=== PATIENT | female | born 1960 | race Caucasian/White ===

== ENCOUNTER 2017-08-24 06:55 | Emergency (ER) | payer OTHER ==
[~2017-08-24] VITALS: Ht 157.5 cm; Wt 72.6 kg
[~2017-08-24 06:55] MED LIST: AMLO5TAB PO; ASPI-1271 PO; CEL250 PO; CIPR500T4 PO; CLON0.1T42 PO; FAMO-90 PO; GEMF600T5 PO; GEMF600T6 PO; GLIP5TAB4 PO; K PH1TAB6 PO; LANTUS SUBQ; MULT1SGL58 PO; PRED10TA5 PO; PROG1 PO; SULF-59 PO; VALG450T PO; [UNRECOGNIZED DRUG - CODE]
[2017-08-24 06:57] VITALS: BP 152/90
[2017-08-24] MEDS ORDERED: ALBUTEROL SULFATE/IPRATROPIU 3 ML SOL IH ONE (07:25)
[2017-08-24] MEDS ORDERED: cefTRIAXone 1,000 MG in LIDOCAINE 1% ***ER ONLY *** 2.1 ML IM ONE (07:35)
--- NOTE | 2017-08-24 08:00 | NUR ---
57/F BIB SELF C/O cough, nasal congestion, wheezing since xmas joseph. LUNG SOUNDS MILD WHEEZING BILAT. WET COUGH NOTED. ER MD MADE AWARE. RT NOTIFIED.
--- NOTE | 2017-08-24 08:01 | NUR ---
RT AT BEDSIDE.
[2017-08-24] MEDS ORDERED: OSELTAMIVIR PHOSPHATE 75 MG CAP PO SCH (09:00)
--- NOTE | 2017-08-24 09:20 | NUR ---
PT STS FEELING BETTER. AWAITING DISCHARGE.
--- NOTE | 2017-08-24 09:46 | NUR ---
Patient discharged with v/s stable. Written and verbal after care instructions given and explained. Patient alert, oriented and verbalized understanding of instructions. Ambulatory with steady gait. All questions addressed prior to discharge. ID band removed. Patient advised to follow up with PMD. Rx of Z-PACK, MOTRIN, CODEINE PHOSPHATE/PROMETHAZINE HYDROCHLORIDE given. Patient educated on indication of medication including possible reaction and side effects. Opportunity to ask questions provided and answered.
[2017-08-24 09:51] VITALS: BP 148/86
== END 2017-08-24 09:46 | disposition home or self-care (01) ==
LOC: MED 06:55
DX: J40 Bronchitis, not specified as acute or chronic (principal); Z20.828 Contact with and (suspected) exposure to other viral communicable diseases; E11.9 Type 2 diabetes mellitus without complications; I10 Essential (primary) hypertension
CPT/HCPCS: 36415; 71046; 87804; 94640; 96372; 99285; J0696; J2001; J7620

== ENCOUNTER 2017-11-28 01:25 | Inpatient (IN) | payer OTHER ==
[~2017-11-28] VITALS: Ht 157.5 cm; Wt 72.1 kg
[2017-11-28 01:27] VITALS: BP 160/78
[2017-11-28] MEDS ORDERED: ATOR20TA PO (01:44)
[2017-11-28] MEDS ORDERED: PROG1 PO ×2 (01:44)
[2017-11-28] MEDS ORDERED: PRED20TA6 PO (01:44)
[2017-11-28] MEDS ORDERED: CEL250 PO (01:44)
[2017-11-28] MEDS ORDERED: INSU100S22 SUBQ (01:44)
[2017-11-28] MEDS ORDERED: NACL 0.9% 1,000 ML IV SCH (02:19)
[2017-11-28] MEDS ORDERED: MORPHINE SULFATE 4 MG/ML SYR IVP ONE (02:20)
[2017-11-28] MEDS ORDERED: ONDANSETRON 4 MG/2 ML VIAL IVP ONE (02:20)
[2017-11-28 02:38] LABS: APPEARANCE,URINE SL CLOUDY (CLEAR); BILIRUBIN,URINE NEGATIVE (NEGATIVE); BLOOD, URINE 2+ (NEGATIVE); COLOR,URINE YELLOW (YELLOW); LEUKOCYTE ESTERASE ,URINE TRACE (NEGATIVE); NITRITE, URINE NEGATIVE (NEGATIVE); PH,URINE 5.5 (5.0-9.0); UGLUCOSE NEGATIVE (NEGATIVE)
[2017-11-28 02:54] LABS: ALBUMIN 3.3 g/dL (3.4-5.0); ANION GAP 17.1 (8-16); CARBON DIOXIDE 23.7 mmol/L (21-32); CREATININE 1.6 mg/dL (0.6-1.3); POTASSIUM 3.8 mmol/L (3.5-5.1); TOTAL BILIRUBIN 0.6 mg/dL (0.0-1.0)
[2017-11-28 02:56] LABS: RBC,URINE 11-20 (MOD) /HPF (0-5)
[2017-11-28 03:17] LABS: HEMATOCRIT 37.6 % (36-48); MEAN CORPUSCULAR HEMOGLOBIN 29 pg (27-31); MEAN CORPUSCULAR HGB CONC 32 g/dL (33-37); MEAN CORPUSCULAR VOLUME 90.1 fL (80-94); PLATELET COUNT (AUTO) 180 K/uL (140-450); RED BLOOD CELL COUNT(AUTO) 4.18 MIL/uL (4.20-5.40); RED CELL DISTRIBUTION WIDTH 14.6 % (11.6-13.7); WHITE BLOOD COUNT (AUTO) 14.3 K/uL (4.8-10.8)
[2017-11-28 03:21] LABS: LYMPHOCYTES % (MANUAL) 3 % (20-46); MONOCYTES % (MANUAL) 5 % (5-12)
[2017-11-28] MEDS ORDERED: NACL 0.9% 1,000 ML IV ONE (03:55)
[2017-11-28] MEDS ORDERED: cefTRIAXone 1,000 MG VIAL ONE (04:00)
[2017-11-28 04:45] VITALS: BP 125/55
[2017-11-28] MEDS ORDERED: ONDANSETRON 4 MG/2 ML VIAL IVP PRN (07:35)
[2017-11-28] MEDS ORDERED: cloNIDine 0.1 MG TAB PO PRN (07:35)
[2017-11-28] MEDS ORDERED: MULTIVITAMIN 1 TAB PO SCH (09:21)
[2017-11-28] MEDS: POTASSIUM CHL 20 MEQ/ 1/2 NS 1,000 ML IV SCH ×2 (09:23→19:50)
[2017-11-28] MEDS: amLODIPine 5 MG TAB PO SCH (09:33)
[2017-11-28] MEDS: MULTIVITAMIN 1 TAB PO SCH (09:34)
[2017-11-28] MEDS: ECOTRIN 81 MG TABEC PO SCH (09:34)
[2017-11-28] MEDS: MYCOPHENOLATE 250 MG CAP PO SCH ×2 (09:34→20:32)
[2017-11-28] MEDS: predniSONE 20 MG TAB PO SCH (09:34)
[2017-11-28] MEDS: FAMOTIDINE 20 MG TAB PO SCH (09:34)
[2017-11-28] MEDS: TACROLIMUS 1 MG CAP PO SCH ×2 (09:37→20:46)
[2017-11-28 11:56] VITALS: BP 134/50
[2017-11-28] MEDS ORDERED: DEXTROSE 50% 50 ML SYR IVP PRN (13:15)
[2017-11-28] MEDS: BLOOD GLUCOSE MONITORING 1 DEV DEV FS SCH ×2 (16:30→20:41)
[2017-11-28] MEDS: INSULIN LISPRO SLIDING SCALE 100 UNITS/ML VIAL SUBQ PRN ×2 (17:52→20:44)
[2017-11-28 19:35] VITALS: BP 124/60
[2017-11-28] MEDS ORDERED: ATORVASTATIN 20 MG TAB PO SCH (21:00)
[2017-11-28] MEDS ORDERED: INSULIN LANTUS 100 UNITS/ML 10 ML VIAL SUBQ SCH (21:00)
[2017-11-29] VITALS: BP 123/57
[2017-11-29] MEDS: POTASSIUM CHL 20 MEQ/ 1/2 NS 1,000 ML IV SCH ×2 (00:31→06:41)
[2017-11-29] MEDS: BLOOD GLUCOSE MONITORING 1 DEV DEV FS SCH ×2 (06:10→12:11)
[2017-11-29] MEDS: INSULIN LISPRO SLIDING SCALE 100 UNITS/ML VIAL SUBQ PRN ×2 (06:11→12:09)
[2017-11-29 06:20] LABS: BASOPHILS % (AUTO) 0.3 % (0.0-2.0); EOSINOPHILS % (AUTO) 0.3 % (0.0-4.0); HEMOGLOBIN 10.7 g/dL (12.0-16.0); LYMPHOCYTES # (AUTO) 1.5 K/uL (2.5-16.5); LYMPHOCYTES % (AUTO) 19.3 % (20.5-51.1); MEAN CORPUSCULAR HEMOGLOBIN 29 pg (27-31); MEAN CORPUSCULAR HGB CONC 32 g/dL (33-37); MEAN CORPUSCULAR VOLUME 89.9 fL (80-94); MONOCYTES % (AUTO) 12.3 % (1.7-9.3); NEUTROPHILS # (AUTO) 5.3 K/uL (1.8-7.7); NEUTROPHILS % (AUTO) 67.8 % (42.2-75.2); PLATELET COUNT (AUTO) 180 K/uL (140-450); RED BLOOD CELL COUNT(AUTO) 3.67 MIL/uL (4.20-5.40); RED CELL DISTRIBUTION WIDTH 14.2 % (11.6-13.7); WHITE BLOOD COUNT (AUTO) 7.8 K/uL (4.8-10.8)
[2017-11-29 07:16] LABS: ALBUMIN 2.7 g/dL (3.4-5.0); ANION GAP 15.5 (8-16); CREATININE 1.2 mg/dL (0.6-1.3); POTASSIUM 4.5 mmol/L (3.5-5.1); TOTAL BILIRUBIN 0.2 mg/dL (0.0-1.0)
[2017-11-29 08:00] VITALS: BP 129/62
[2017-11-29] MEDS: MULTIVITAMIN 1 TAB PO SCH (09:15)
[2017-11-29] MEDS: TACROLIMUS 1 MG CAP PO SCH (09:15)
[2017-11-29] MEDS: amLODIPine 5 MG TAB PO SCH (09:15)
[2017-11-29] MEDS: predniSONE 20 MG TAB PO SCH (09:15)
[2017-11-29] MEDS: MYCOPHENOLATE 250 MG CAP PO SCH (09:16)
[2017-11-29] MEDS: FAMOTIDINE 20 MG TAB PO SCH (09:16)
[2017-11-29] MEDS: ECOTRIN 81 MG TABEC PO SCH (09:16)
== END 2017-11-29 15:20 | disposition home or self-care (01) | DRG 871 ==
LOC: MED 01:25 → MMU 04:20
PROVIDERS: ADMIT Family Medicine; ATTEND Family Medicine
DX: A41.9 Sepsis, unspecified organism (principal); N17.0 Acute kidney failure with tubular necrosis; E44.1 Mild protein-calorie malnutrition; Z94.0 Kidney transplant status; E11.9 Type 2 diabetes mellitus without complications; D64.9 Anemia, unspecified; N39.0 Urinary tract infection, site not specified; I10 Essential (primary) hypertension; E78.00 Pure hypercholesterolemia, unspecified; Z79.82 Long term (current) use of aspirin; Z79.899 Other long term (current) drug therapy; Z82.49 Family history of ischemic heart disease and other diseases of the circulatory system; Z83.3 Family history of diabetes mellitus; Z90.710 Acquired absence of both cervix and uterus; Z90.49 Acquired absence of other specified parts of digestive tract; Z68.29 Body mass index [BMI] 29.0-29.9, adult
CPT/HCPCS: 36415; 80053; 81001; 81025; 82948; 83605; 83690; 85025; 87040; 87081; 87086; 87186; 93976; 96361; 96375; 99285; J0696; J1815; J2270; J2405; J3480; J7030; J7060; J7507; J7512; J7517; Q0092

== ENCOUNTER 2018-06-15 07:51 | Inpatient (IN) | payer OTHER ==
[~2018-06-15] VITALS: Ht 157.5 cm; Wt 78.9 kg
[~2018-06-15 07:51] MED LIST changes: +ATOR20TA PO; -CIPR500T4 PO; -FAMO-90 PO; -GEMF600T5 PO; -GEMF600T6 PO; -GLIP5TAB4 PO; +INSU100S22 SUBQ; -K PH1TAB6 PO; -LANTUS SUBQ; -PRED10TA5 PO; +PRED20TA6 PO; -SULF-59 PO; -VALG450T PO; -[UNRECOGNIZED DRUG - CODE]
[2018-06-15 07:59] VITALS: BP 163/82
--- NOTE | 2018-06-15 08:07 | NUR ---
Patient ambulated to bed 8 after providing a urine specimen. RN evaluating patient at bedside.
--- NOTE | 2018-06-15 08:15 | NUR ---
PT PRESENTS TO ED WITH COMPLAINTS OF BACK PAIN, N/V, FEVER AND CHILLS. PT REPORTS HX KIDNEY TRANSPLANT. PATIENT STATES PAIN OF 8/10 AT THIS TIME; VSS; PATIENT POSITIONED FOR COMFORT; HOB ELEVATED; BEDRAILS UP X1; BED DOWN. ER MD MADE AWARE OF PT STATUS.
--- NOTE | 2018-06-15 08:17 | NUR ---
Dr. Arana evaluating patient at bedside.
[2018-06-15] MEDS ORDERED: ONDANSETRON 4 MG/2 ML VIAL IVP ONE (08:25)
[2018-06-15] MEDS: NACL 0.9% 1,000 ML IV SCH ×2 (08:46→13:59)
[2018-06-15 08:53] LABS: BASOPHILS # (AUTO) 0.1 K/uL (0.00-0.22); BASOPHILS % (AUTO) 0.4 % (0.0-2.0); HEMATOCRIT 38.8 % (36-48); HEMOGLOBIN 12.5 g/dL (12.0-16.0); LYMPHOCYTES # (AUTO) 0.8 K/uL (2.5-16.5); LYMPHOCYTES % (AUTO) 4.9 % (20.5-51.1); MEAN CORPUSCULAR HEMOGLOBIN 29 pg (27-31); MEAN CORPUSCULAR HGB CONC 32 g/dL (33-37); MEAN CORPUSCULAR VOLUME 89.4 fL (80-94); MONOCYTES # (AUTO) 1.7 K/uL (0.8-1.0); NEUTROPHILS # (AUTO) 14.3 K/uL (1.8-7.7); NEUTROPHILS % (AUTO) 84.7 % (42.2-75.2); PLATELET COUNT (AUTO) 229 K/uL (140-450); RED BLOOD CELL COUNT(AUTO) 4.34 MIL/uL (4.20-5.40); WHITE BLOOD COUNT (AUTO) 16.9 K/uL (4.8-10.8)
--- NOTE | 2018-06-15 09:00 | NUR ---
US tech at bedside for exam.
[2018-06-15 09:03] LABS: BILIRUBIN,URINE NEGATIVE (NEGATIVE); BLOOD, URINE TRACE (NEGATIVE); NITRITE, URINE NEGATIVE (NEGATIVE); UGLUCOSE NEGATIVE (NEGATIVE)
[2018-06-15 09:09] LABS: COLOR,URINE YELLOW (YELLOW)
[2018-06-15 09:10] LABS: RBC,URINE 0-5 (RARE) /HPF (0-5)
[2018-06-15 09:12] LABS: APPEARANCE,URINE SLIGHTLY HAZY (CLEAR); LEUKOCYTE ESTERASE ,URINE TRACE (NEGATIVE)
[2018-06-15 09:22] LABS: ANION GAP 15.8 (8-16); CARBON DIOXIDE 22.8 mmol/L (21-32); CREATININE 1.2 mg/dL (0.6-1.3); POTASSIUM 3.6 mmol/L (3.5-5.1)
[2018-06-15 09:28] LABS: ALBUMIN 3.7 g/dL (3.4-5.0); TOTAL BILIRUBIN 0.5 mg/dL (0.0-1.0)
--- NOTE | 2018-06-15 10:39 | NUR ---
pt back from ct.
[2018-06-15] MEDS ORDERED: cefTRIAXone 1,000 MG VIAL ONE (11:57)
[2018-06-15] MEDS ORDERED: ONDANSETRON 4 MG/2 ML VIAL IVP PRN (13:20)
[2018-06-15] MEDS ORDERED: cloNIDine 0.1 MG TAB PO PRN (13:20)
--- NOTE | 2018-06-15 14:30 | NUR ---
Patient will be admitted to care of dr. parmar. Admited to [facility]. Will go to room 106b. Belongings list completed. Report to ARIN HERNANDEZ.
[2018-06-15 14:45] VITALS: BP 130/64
--- NOTE | 2018-06-15 14:45 | NUR ---
PATIENT ADMITTED TO THE UNIT. PATIENT AWAKE, ALERT AND ORIENTED. NO S/S OF DISTRESS NOTED. PATIENT DENIES PAIN AT THIS TIME. NO ACTIVE VOMITING OR NAUSEA. BED LOWERED WITH CALL LIGHT WITHIN REACH. WILL CONTINUE TO MONITOR
[2018-06-15] MEDS ORDERED: DEXTROSE 50% 50 ML SYR IVP PRN (15:00)
[2018-06-15] MEDS: NACL 0.45% 1,000 ML IV SCH ×2 (15:05→23:53)
[2018-06-15] MEDS: BLOOD GLUCOSE MONITORING 1 DEV DEV FS SCH ×2 (16:25→20:40)
--- NOTE | 2018-06-15 16:45 | NUR ---
PATIENT ASLEEP IN BED. NO S/S OF DISTRESS NOTED
--- NOTE | 2018-06-15 19:21 | NUR ---
PATIENT REPORT GIVEN AT BEDSIDE. PATIENT ENDORSED IN STABLE CONDITION
--- NOTE | 2018-06-15 19:22 | NUR ---
RECEIVED BEDSIDE REPORT. PT A&O X4. IS ON RA. HAS IV R FA 20G INFUSING 1/2 NS AT 100ML/H. PT DENIES ANY PAIN. REVIEWED PLAN OF CARE WITH PT. SHE VERBALIZED UNDERSTANDING. ALL SAFETY MEASURES IN PLACE.
[2018-06-15] MEDS: TACROLIMUS 0.5 MG CAP PO SCH (20:32)
[2018-06-15] MEDS: MYCOPHENOLATE 250 MG CAP PO SCH (20:33)
--- NOTE | 2018-06-15 20:33 | NUR ---
DUE MEDICATIONS GIVEN PT TOLERATED WELL. NO DISTRESS NOTED. WILL CONTINUE TO MONITOR. CALL LIGHT WITHIN REACH.
[2018-06-15] MEDS: INSULIN LISPRO SLIDING SCALE 100 UNITS/ML VIAL SUBQ PRN (20:38)
[2018-06-15] MEDS ORDERED: ATORVASTATIN 20 MG TAB PO SCH (21:00)
[2018-06-15] MEDS ORDERED: INSULIN LANTUS 100 UNITS/ML 10 ML VIAL SUBQ SCH (21:00)
--- NOTE | 2018-06-15 23:16 | NUR ---
PAGED DR BRAGA REGARDING PTS TEMP OF 101.6. NO NEW ORDERS TO MONITOR. WILL CONTINUE TO MONITOR. Addendum: 06/16/18 at 0112 by Rola Escobar RN REMOVED PTS BLANKET AND WILL RECHECK.
--- NOTE | 2018-06-15 23:59 | NUR ---
PT IN STABLE CONDITION NO COMPLAINS OF PAIN OR CHILLS. CALL LIGHT WITHIN REACH. WILL CONTINUE TO MONITOR. SAFETY MEASURES IN PLACE.
[2018-06-16] VITALS: BP 150/66
--- NOTE | 2018-06-16 01:00 | NUR ---
RECHECKED PTS TEMPERATURE AND IS NOW 97.9. PT STABLE DENIES AND SOB,CHILLS, OR PAIN. WILL CONTINUE TO MONITOR. CALL LIGHT WITHIN REACH
--- NOTE | 2018-06-16 04:08 | NUR ---
PT SLEEPING. NO DISTRESS NOTED. SAFETY MEASURES IN PLACE. WILL CONTINUE TO MONITOR. CALL LIGHT WITHIN REACH.
[2018-06-16] MEDS: BLOOD GLUCOSE MONITORING 1 DEV DEV FS SCH ×3 (06:47→16:30)
[2018-06-16 06:59] LABS: BASOPHILS % (AUTO) 0.3 % (0.0-2.0); EOSINOPHILS % (AUTO) 0.3 % (0.0-4.0); HEMATOCRIT 34.8 % (36-48); HEMOGLOBIN 11.4 g/dL (12.0-16.0); LYMPHOCYTES # (AUTO) 1.4 K/uL (2.5-16.5); LYMPHOCYTES % (AUTO) 10.6 % (20.5-51.1); MEAN CORPUSCULAR HEMOGLOBIN 29 pg (27-31); MEAN CORPUSCULAR HGB CONC 33 g/dL (33-37); MEAN CORPUSCULAR VOLUME 89.5 fL (80-94); MONOCYTES # (AUTO) 1.6 K/uL (0.8-1.0); MONOCYTES % (AUTO) 12.3 % (1.7-9.3); NEUTROPHILS # (AUTO) 9.8 K/uL (1.8-7.7); NEUTROPHILS % (AUTO) 76.5 % (42.2-75.2); PLATELET COUNT (AUTO) 202 K/uL (140-450); RED BLOOD CELL COUNT(AUTO) 3.89 MIL/uL (4.20-5.40); RED CELL DISTRIBUTION WIDTH 14.1 % (11.6-13.7); WHITE BLOOD COUNT (AUTO) 12.8 K/uL (4.8-10.8)
[2018-06-16 07:18] LABS: MAGNESIUM 1.1 mg/dL (1.8-2.4); PHOSPHORUS 2.4 mg/dL (2.5-4.9)
--- NOTE | 2018-06-16 07:23 | NUR ---
ENDORSED PT TO DAY SHIFT. PT IN STABLE CONDITION
--- NOTE | 2018-06-16 07:35 | NUR ---
RECEIVED PATIENT FROM PM SHIFT BY BEDSIDE. PATIENT IS IN STABLE CONDITION WITH NO APPARENT DISTRESS. PATIENT IS AOX4, ON ROOM AIR. PATIENT DID NOT STATE ANY PAIN, VOMITING, OR NAUSEA AT THE TIME OF ASSESSMENT. VITAL SIGNS ARE ALL WITHIN THE NORMAL LIMITS.
[2018-06-16 07:43] LABS: ANION GAP 15.4 (8-16); CARBON DIOXIDE 21.2 mmol/L (21-32); CREATININE 1.1 mg/dL (0.6-1.3); POTASSIUM 3.6 mmol/L (3.5-5.1)
[2018-06-16 08:00] VITALS: BP 141/61
[2018-06-16] MEDS ORDERED: amLODIPine 5 MG TAB PO SCH (09:00)
[2018-06-16] MEDS ORDERED: MULTIVITAMIN 1 TAB PO SCH (09:00)
[2018-06-16] MEDS ORDERED: ECOTRIN 81 MG TABEC PO SCH (09:00)
[2018-06-16] MEDS ORDERED: predniSONE 5 MG TAB PO SCH (09:00)
[2018-06-16] MEDS: TACROLIMUS 0.5 MG CAP PO SCH (09:22)
[2018-06-16] MEDS: MYCOPHENOLATE 250 MG CAP PO SCH (09:23)
[2018-06-16] MEDS: NACL 0.45% 1,000 ML IV SCH (09:45)
--- NOTE | 2018-06-16 10:30 | NUR ---
PATIENT IS WATCHING TV AND DOES NOT SEEM TO BE IN ANY PAIN OR DISTRESS. SAFETY MEASURES IN PLACE. CALL LIGHT WITHIN REACH.
--- NOTE | 2018-06-16 11:30 | NUR ---
PATIENT IN BED, WATCHING TELEVISION. NO S/S OF DISTRESS. PATIENT DENIES ANY DISCOMFORT
[2018-06-16] MEDS: INSULIN LISPRO SLIDING SCALE 100 UNITS/ML VIAL SUBQ PRN (12:18)
[2018-06-16] MEDS ORDERED: MAG SULF 2000 MG/WATER PREMIX 50 ML IV ONE (13:25)
[2018-06-16] MEDS: MAGNESIUM SULFATE 1GM in DEXTROSE 5% 100 ML PREMIX IV SCH ×2 (14:13→15:42)
--- NOTE | 2018-06-16 15:12 | NUR ---
SPOKE WITH DR TUCKER ON THE PHONE. PER DR TUCKER, PATIENT IS CLEARED FOR DISCHARGE FROM HIS STAND POINT. NOTIFIED DR BRAGA. PER DR BRAGA PATIENT CAN BE DISCHARGED TO HOME AND PRESCRIPTIONS WILL BE SENT TO PATIENT'S PREFERRED PHARMACY
[2018-06-16 15:47] VITALS: BP 140/64
[2018-06-16] MEDS ORDERED: PNEUMOCOCCAL VACCINE 23 MCG/0.5 ML VIAL IMVAC SCH (16:40)
--- NOTE | 2018-06-16 17:30 | NUR ---
PATIENT DISCHARGED TO HOME. DISCHARGE INSTRUCTIONS AND DISCHARGE PRESCRIPTIONS GIVEN. PATIENT VERBALIZED UNDERSTANDING. IV LINE DISCONTINUED. TELE MONITOR TAKEN OFF. PATIENT LEFT WITH ALL HER BELONGINGS AND DISCHARGE PAPERS. PATIENT LEFT IN STABLE CONDITION
[2018-06-18 16:08] LABS: TACROLIMUS 7.8 ng/mL (2.0-20.0)
== END 2018-06-16 17:30 | disposition home or self-care (01) | DRG 871 ==
LOC: MED 07:51 → MTU 14:24 → OBSVTOIN 06-16 07:44
PROVIDERS: ADMIT Family Medicine; ATTEND Family Medicine
PROC: 3E0234Z Introduction of Serum, Toxoid and Vaccine into Muscle, Percutaneous Approach (ICD-10-PCS; principal; 2018-06-16)
DX: A41.9 Sepsis, unspecified organism (principal); N18.6 End stage renal disease; N12 Tubulo-interstitial nephritis, not specified as acute or chronic; I12.0 Hypertensive chronic kidney disease with stage 5 chronic kidney disease or end stage renal disease; N17.9 Acute kidney failure, unspecified; Z94.0 Kidney transplant status; E78.5 Hyperlipidemia, unspecified; Z79.4 Long term (current) use of insulin; Z82.49 Family history of ischemic heart disease and other diseases of the circulatory system; Z83.3 Family history of diabetes mellitus; Z90.49 Acquired absence of other specified parts of digestive tract; Z90.710 Acquired absence of both cervix and uterus; E11.22 Type 2 diabetes mellitus with diabetic chronic kidney disease; Z23 Encounter for immunization
CPT/HCPCS: 96361; 96374; 99285; G0378; 36415; 71045; 76770; 80048; 80053; 81001; 82948; 83690; 83735; 84100; 85025; 87040; 87081; 87086; 87186; 90732; 93976; J0696; J1815; J2405; J7060; J7507; J7512; J7517; Q0092

== ENCOUNTER 2019-06-20 08:11 | Inpatient (IN) | payer OTHER, BC ==
[~2019-06-20] VITALS: Ht 157.5 cm; Wt 83.5 kg
[2019-06-20 08:21] VITALS: BP 140/71
--- NOTE | 2019-06-20 08:28 | NUR ---
Patient ambulated to bed 8.
--- NOTE | 2019-06-20 08:31 | NUR ---
ACCU CHECK 163
--- NOTE | 2019-06-20 08:31 | NUR ---
PT UNABLE TO GIVE URINE AT THIS TIME
[2019-06-20] MEDS ORDERED: NACL 0.9% 1,000 ML IV ONE (08:40)
[2019-06-20] MEDS ORDERED: ONDANSETRON 4 MG/2 ML VIAL IVP ONE (08:40)
--- NOTE | 2019-06-20 08:49 | NUR ---
PT BIB SON C/O VOMITING X 1 DAY. PT ALSO COMPLAINS OF LOOSE, WATERY, FOUL-SMELLING DIARRHEA QHOUR SINCE THIS AM. +NAUSEA +BACK PAIN -FEVER -URINARY SYMPTOMS ER MD TO SEE PT
[2019-06-20 09:24] LABS: BASOPHILS % (AUTO) 0.2 % (0.0-2.0); EOSINOPHILS # (AUTO) 0.2 K/uL (0-0.4); EOSINOPHILS % (AUTO) 1.1 % (0.0-4.0); HEMATOCRIT 41.8 % (36-48); HEMOGLOBIN 13.6 g/dL (12.0-16.0); LYMPHOCYTES # (AUTO) 0.4 K/uL (2.5-16.5); LYMPHOCYTES % (AUTO) 3.1 % (20.5-51.1); MEAN CORPUSCULAR HEMOGLOBIN 30 pg (27-31); MEAN CORPUSCULAR HGB CONC 33 g/dL (33-37); MEAN CORPUSCULAR VOLUME 92.2 fL (80-94); MONOCYTES # (AUTO) 0.8 K/uL (0.8-1.0); MONOCYTES % (AUTO) 5.5 % (1.7-9.3); NEUTROPHILS # (AUTO) 12.5 K/uL (1.8-7.7); NEUTROPHILS % (AUTO) 90.1 % (42.2-75.2); PLATELET COUNT (AUTO) 237 K/uL (140-450); RED BLOOD CELL COUNT(AUTO) 4.53 MIL/uL (4.20-5.40); RED CELL DISTRIBUTION WIDTH 14.6 % (11.6-13.7); WHITE BLOOD COUNT (AUTO) 13.9 K/uL (4.8-10.8)
[2019-06-20 09:35] LABS: ANION GAP 17.1 (8-16); CARBON DIOXIDE 23.4 mmol/L (21-32)
[2019-06-20 09:40] LABS: POTASSIUM 4.5 mmol/L (3.5-5.1)
[2019-06-20 09:41] LABS: ALBUMIN 3.9 g/dL (3.4-5.0); TOTAL BILIRUBIN 0.8 mg/dL (0.0-1.0)
[2019-06-20 09:45] LABS: APPEARANCE,URINE CLEAR (CLEAR); BILIRUBIN,URINE NEGATIVE (NEGATIVE); BLOOD, URINE NEGATIVE (NEGATIVE); COLOR,URINE YELLOW (YELLOW); LEUKOCYTE ESTERASE ,URINE 1+ (NEGATIVE); NITRITE, URINE NEGATIVE (NEGATIVE); UGLUCOSE NEGATIVE (NEGATIVE)
[2019-06-20 10:01] LABS: RBC,URINE 0-5 /HPF (0-5)
[2019-06-20] MEDS ORDERED: ASPIRIN 81 MG TAB.CHEW PO ONE (10:10)
[2019-06-20] MEDS ORDERED: METO25TA14 PO (10:19)
[2019-06-20] MEDS ORDERED: cefTRIAXone 1,000 MG VIAL ONE (10:20)
[2019-06-20] MEDS ORDERED: HYDROcodone/APAP 5/325 MG 1 TAB TAB PO PRN (10:45)
[2019-06-20] MEDS ORDERED: ONDANSETRON 4 MG/2 ML VIAL IM/IVP PRN (10:45)
[2019-06-20] MEDS ORDERED: ACETAMINOPHEN 325 MG TAB PO PRN (10:45)
[2019-06-20] MEDS ORDERED: DOCUSATE SODIUM 100 MG GELCAP PO PRN (10:45)
[2019-06-20] MEDS ORDERED: cloNIDine 0.1 MG TAB PO PRN (10:45)
[2019-06-20] MEDS ORDERED: MORPHINE SULFATE 2 MG/ML SYR IVP PRN (10:45)
[2019-06-20] MEDS ORDERED: DEXTROSE 50% 50 ML SYR IVP PRN (11:00)
[2019-06-20 11:27] LABS: PROTHROMBIN TIME 9.6 secs (10.8-13.4)
--- NOTE | 2019-06-20 11:34 | NUR ---
Patient will be admitted to care of DR BRAGA. Admited to ICU. Will go to BED 3. Belongings list completed. Report to KISHOR.
[2019-06-20 11:36] LABS: MAGNESIUM 1.3 mg/dL (1.8-2.4); PHOSPHORUS 2.3 mg/dL (2.5-4.9); THYROID STIMULATING HORMONE 2.13 uIU/mL (0.34-3.74)
[2019-06-20] MEDS: NACL 0.9% 1,000 ML IV SCH (11:40)
--- NOTE | 2019-06-20 11:40 | NUR ---
PT TRANSFERRED TO ICU FROM ER, REPORT RECEIVED AT BEDSIDE FROM ARIN TEE. PT IS TELEMETRY STATUS. AAOX4, ABLE TO FOLLOW COMMANDS AND MAKE NEEDS KNOWN. AFEBRILE. C/O MILD BACK PAIN. DOES NOT NEED PAIN MEDICATION PER PT. NORMAL SINUS RHYTHM ON MONITOR. S1 S2 HEARD. PT IS ON ROOM AIR. NO SOB NOTED. BREATHING EVEN AND UNLABORED. BP 127/57, HR 87, 22 24, SPO2 96%. BLOOD SUGAR 145. LUNGS SOUND CLEAR BILATERALLY. ABDOMEN SOFT, NONTENDER AND NONDISTENDED. BOWEL SOUNDS PRESENT X 4 QUADRANTS. PERIPHERAL IV G22 TO RIGHT FOREARM PATENT AND INTACT WITH GOOD BLOOD RETURN. IVF NORMAL SALINE RUNNING AT 100 ML/HR. PT IS CONTINENT B&B, NO BLADDER DISTENTION NOTED. SKIN IS INTACT, DRY AND WARM TO TOUCH. PULSES PALPABLE TO ALL EXTREMITIES. CAP REFILL <2SEC. OLD HD SHUNT NOTED TO LEFT UPPER ARM. NO EDEMA NOTED. HOB 30 DEGREES, BED IN LOWEST POSITION LOCKED, CALL LIGHT WITHIN REACH. SAFETY PRECAUTIONS IN PLACE. NO SIGNS OF DISTRESS NOTED. WILL CONTINUE OT MONITOR. Addendum: 06/20/19 at 1346 by Estefany Elizabeth RN S/P KIDNEY TRANSPLANT IN 2014
[2019-06-20] MEDS: BLOOD GLUCOSE MONITORING 1 DEV DEV FS SCH ×3 (11:53→21:29)
[2019-06-20 12:00] VITALS: BP 127/57
[2019-06-20] MEDS ORDERED: MAGNESIUM OXIDE 400 MG TAB PO SCH (12:15)
[2019-06-20] MEDS ORDERED: SODIUM PHOS / POTASSIUM PHOS 1 PKT PDR PO SCH (12:30)
--- NOTE | 2019-06-20 13:05 | NUR ---
PT SEEN AND EXAMINED BY DR. BRAGA. NO NEW ORDER RECEIVED AT THIS TIME.
[2019-06-20] MEDS ORDERED: PANTOPRAZOLE 40 MG INJ VIAL IVP SCH (13:11)
--- NOTE | 2019-06-20 14:05 | NUR ---
PT DENIES SCDS AT THIS TIME. EDUCATED PT THE PURPOSE AND BENEFITS OF SEQUENTIAL DEVICES. PT VERBALIZED UNDERSTANDING. PT ABLE TO MOVE ALL EXTREMITIES, ABLE TO AMBULATE AND USES BEDSIDE COMMODE.
--- NOTE | 2019-06-20 15:00 | NUR ---
PT DENIES NAUSEA AND PAIN AT THIS TIME. VSS. NO S/SX OF DISTRESS NOTED. SAFETY PRECAUTIONS IN PLACE. WILL CONTINUE TO MONITOR.
--- NOTE | 2019-06-20 15:36 | NUR ---
PT USED BEDSIDE COMMODE, VOIDED 300 ML YELLOW URINE W/ SMALL AMOUNT OF SEDIMENTS. ASSISTED PT BACK TO BED. NO SOB OR DISTRESS AT THIS TIME. VSS. SAFETY PRECAUTIONS IN PLACE.
[2019-06-20 16:00] VITALS: BP 126/67
[2019-06-20] MEDS ORDERED: INSULIN LISPRO 100 UNITS/ML VIAL SUBQ SCH (16:30)
--- NOTE | 2019-06-20 16:35 | NUR ---
PT'S BLOOD SUGAR 170. 14 UNITS OF HUMALOG SCHEDULED AND PT ALSO HAS SLIDING SCALE. CALLED DR. AMADOR AND VERIFIED ORDER. PER DR. AMADOR, ONLY GIVE HUMALOG SLIDING SCALE AT THIS TIME. WILL CARRY OUT.
[2019-06-20] MEDS: INSULIN LISPRO SLIDING SCALE 100 UNITS/ML VIAL SUBQ PRN ×2 (16:49→21:42)
--- NOTE | 2019-06-20 17:50 | NUR ---
DINNER PROVIDED. PT SITTING UP AND HAVING DINNER INDEPENDENTLY. NO S/SX OF DISTRESS NOTED. VSS. SAFETY PRECAUTIONS IN PLACE.
--- NOTE | 2019-06-20 18:40 | NUR ---
PT TRANSFERRED TO TELEMETRY ROOM 106B. REPORT GIVEN TO ARIN SIDDIQUI AT BEDSIDE. NO S/SX OF DISTRESS NOTED AT THIS TIME.
--- NOTE | 2019-06-20 19:25 | NUR ---
RECEIVED BEDSIDE REPORT FROM CHEN HINKLE DAYSHIFT NURSE AT BEDSIDE FOR CONTINUITY OF CARE, PT IN STABLE CONDITION.
--- NOTE | 2019-06-20 19:29 | NUR ---
Shift report given to shift engineer nurse. Pt is in stable condition.
[2019-06-20 20:00] VITALS: BP 129/57
--- NOTE | 2019-06-20 20:00 | NUR ---
PT IN LOW BED WITH SIDE RAILS UP X2 AND CALL SHERWOOD IN REACH. PT HAS 22G ON RIGHT F/A INTACT AND RUNNING N/S AT 60MLS/HR. V/S FOLLOWS T 97.9 P 74 R 18 B/P 129/57 02 93% ON ROOM AIR. ALL REQUESTED NEEDS ATTENDED AND CALL SHERWOOD IN REACH.
[2019-06-20] MEDS ORDERED: INSULIN LANTUS 100 UNITS/ML 10 ML VIAL SUBQ SCH (21:00)
[2019-06-20] MEDS ORDERED: MYCOPHENOLATE 250 MG CAP PO SCH (21:00)
[2019-06-20] MEDS ORDERED: TACROLIMUS 0.5 MG CAP PO SCH ×2 (21:00)
--- NOTE | 2019-06-20 21:00 | NUR ---
PT SITTING UP IN BED, DR. BRODY STAGE DRIVER AT BEDSIDE CONSULTING PT. EDUCATION REGARDING MEDICATIONS PROVIDED TO PT AND PT VERBALIZED UNDERSTANDING. PT ALSO GIVEN DUE MEDS OF CELLCEPT, LIPITOR, LOPRESSOR, PROGRAF AA WELL LANTUS SQ INJECTION FOR DM2. FINGERSTICK IS 183, PT ALSO GIVEN 2 UNITS OF HUMALOG COVERAGE SQ. PT C/O MODERATE PAIN IN BACK, GIVEN 1 TAB NORCO 5/325 PO/PRN WILL MONITOR FOR PAIN RELIEF. ALL REQUESTED NEEDS ATTENDED AND CALL SHERWOOD IN REACH. Addendum: 06/20/19 at 2257 by Tasia Cortez RN PT GIVEN NORCO TAB AT 2150 NOT 2100.
[2019-06-20] MEDS: MYCOPHENOLATE 250 MG CAP PO SCH (21:31)
[2019-06-20] MEDS: ATORVASTATIN 20 MG TAB PO SCH (21:32)
[2019-06-20] MEDS: TACROLIMUS 0.5 MG CAP PO SCH (21:33)
[2019-06-20] MEDS: METOPROLOL 25 MG TAB PO SCH (21:33)
[2019-06-20] MEDS: INSULIN LANTUS 100 UNITS/ML 10 ML VIAL SUBQ SCH (21:40)
[2019-06-21] VITALS: BP 127/62
--- NOTE | 2019-06-21 01:00 | NUR ---
PT IN BED RESTING WITH EYES CLOSED, PT STATED POSITIVE EFFECT OF PAIN MEDICATION. V/S FOLLOWS T 98.5 P 70 R 18 B/P 127/62 02 94% ON ROOM AIR. PT GIVEN PRINT OUT OF ORDERED HUMALOG S/S [id number] FOR REFERENCE FOR HER PRIMARY CARE WHEN SHE HAS FOLLOW UP APPOINTMENT. TEACHING DONE AT BEDSIDE REGARDING DM2. N/S CONTINUES TO RUN AT 60MLS/HR. IV SITE INTACT AND ASYMPTOMATIC. BED LOW MINE DEPUTY RAILS UP AND CALL SHERWOOD IN REACH.
--- NOTE | 2019-06-21 02:00 | NUR ---
PT RESTING IN BED NO S/S OF PAIN OR DISTRESS NOTED, N/S BAG COMPLETED AND NEW BAG HUNG AND IS RUNNING ORDERED AT 60MLS/HR. IV SITE INTACT, BED IS LOW AND SIDE RAILS UP, CALL SHERWOOD IN REACH.
[2019-06-21] MEDS: NACL 0.9% 1,000 ML IV SCH (03:00)
[2019-06-21 04:00] VITALS: BP 135/65
--- NOTE | 2019-06-21 04:00 | NUR ---
PT IN BED NO C/O VOICED NS RUNNING AT 60MLS/HR. PT DENIES PAIN. SHE IS ABLE TO AMBULATE UNASSISTED TO TOILET AND BACK. V/S FOLLOWS T 97.0 P 68 R 18 B/P 135/65 02 95% ON ROOM AIR. BED LOW AND CALL SHERWOOD IN REACH.
[2019-06-21] MEDS: INSULIN LISPRO SLIDING SCALE 100 UNITS/ML VIAL SUBQ PRN ×4 (06:49→20:44)
[2019-06-21] MEDS: BLOOD GLUCOSE MONITORING 1 DEV DEV FS SCH ×4 (06:56→21:00)
--- NOTE | 2019-06-21 06:57 | NUR ---
PT FINGERSTICK IS 152,PT GIVEN 2 UNITS OF HUMALOG COVERAGE NO S/S OF PAIN OR DISTRESS NOTED CALL SHERWOOD IN REACH.
[2019-06-21 07:13] LABS: ANION GAP 13.9 (8-16); CARBON DIOXIDE 23.8 mmol/L (21-32); POTASSIUM 3.7 mmol/L (3.5-5.1)
[2019-06-21 07:16] LABS: CHOL/HDL RATIO 2.7 (1-4.5)
--- NOTE | 2019-06-21 07:28 | NUR ---
REPORT RECEIVED FROM PROFESSOR OF PUBLIC ADMINISTRATION NURSE, PT SLEEPING QUIETLY IN NO ACUTE DISTRESS, RESP EVEN UNLABORED, SKIN WARM DRY COLOR WNL, AROUSES EASILY, DENIES PAIN OR DISCOMFORT, IVF INFUSING WELL, SITE WNL, POC REVIEWED, ALL SAFETY MEASURES IN PLACE, NO IMMEDIATE NEEDS AT THIS TIME, WILL CONTINUE TO MONITOR.
[2019-06-21 07:29] LABS: MAGNESIUM 1.3 mg/dL (1.8-2.4); PHOSPHORUS 2.3 mg/dL (2.5-4.9)
[2019-06-21 07:45] LABS: BASOPHILS % (AUTO) 0.3 % (0.0-2.0); EOSINOPHILS # (AUTO) 0.1 K/uL (0-0.4); EOSINOPHILS % (AUTO) 1.3 % (0.0-4.0); HEMATOCRIT 34.2 % (36-48); HEMOGLOBIN 11.1 g/dL (12.0-16.0); LYMPHOCYTES # (AUTO) 1.3 K/uL (2.5-16.5); LYMPHOCYTES % (AUTO) 19.2 % (20.5-51.1); MEAN CORPUSCULAR HEMOGLOBIN 30 pg (27-31); MEAN CORPUSCULAR HGB CONC 32 g/dL (33-37); MEAN CORPUSCULAR VOLUME 92.2 fL (80-94); MONOCYTES # (AUTO) 0.6 K/uL (0.8-1.0); MONOCYTES % (AUTO) 9.6 % (1.7-9.3); NEUTROPHILS # (AUTO) 4.7 K/uL (1.8-7.7); NEUTROPHILS % (AUTO) 69.6 % (42.2-75.2); PLATELET COUNT (AUTO) 210 K/uL (140-450); RED BLOOD CELL COUNT(AUTO) 3.71 MIL/uL (4.20-5.40); RED CELL DISTRIBUTION WIDTH 14.2 % (11.6-13.7); WHITE BLOOD COUNT (AUTO) 6.7 K/uL (4.8-10.8)
[2019-06-21 08:00] VITALS: BP 115/57
[2019-06-21] MEDS ORDERED: METOPROLOL 25 MG TAB PO SCH (09:00)
[2019-06-21] MEDS ORDERED: amLODIPine 5 MG TAB PO SCH (09:00)
[2019-06-21] MEDS ORDERED: TACROLIMUS 0.5 MG CAP PO SCH (09:00)
[2019-06-21] MEDS: METOPROLOL 25 MG TAB PO SCH ×2 (09:00→20:41)
[2019-06-21] MEDS: amLODIPine 5 MG TAB PO SCH ×2 (09:00→12:25)
[2019-06-21] MEDS ORDERED: SODIUM PHOSPHATE 15 MMOLE in NACL 0.9% 250 ML IV SCH (09:00)
[2019-06-21] MEDS ORDERED: predniSONE 20 MG TAB PO SCH (09:00)
[2019-06-21] MEDS ORDERED: MAG SULF 2000 MG/WATER PREMIX 50 ML IV SCH (09:00)
[2019-06-21] MEDS: predniSONE 5 MG TAB PO SCH (09:15)
[2019-06-21] MEDS: ASPIRIN 81 MG TAB.CHEW PO SCH (09:16)
[2019-06-21] MEDS: PANTOPRAZOLE 40 MG INJ VIAL IVP SCH (09:16)
[2019-06-21] MEDS: MULTIVITAMIN/MINERALS 1 TAB PO SCH (09:17)
[2019-06-21] MEDS: LACTOBACILLUS RHAMNOSUS GG 1 EACH CAP PO SCH (09:17)
--- NOTE | 2019-06-21 09:20 | NUR ---
PT SITTING UP AT SIDE OF BED, JUST FINISHED BREAKFAST, AM MEDS GIVEN, ADIEL WELL, ROCEPHINE GIVEN PER ORDER, IV SITE WNL, DENIES PAIN OR DISCOMFORT, CALL LIGHT WITHIN REACH, WILL CONTINUE TO MONITOR.
[2019-06-21] MEDS: TACROLIMUS 0.5 MG CAP PO SCH ×2 (09:28→20:40)
[2019-06-21] MEDS: MYCOPHENOLATE 250 MG CAP PO SCH ×2 (09:28→20:41)
[2019-06-21 12:00] VITALS: BP 158/87
--- NOTE | 2019-06-21 12:29 | NUR ---
2UNITS INSULIN GIVEN FOR BS 177.
--- NOTE | 2019-06-21 15:07 | NUR ---
PT SITTING UP IN BED IN NO ACUTE DISTRESS, APPEARS COMFORTABLE, DENIES ANY IMMEDIATE NEEDS.
[2019-06-21 16:00] VITALS: BP 120/56
--- NOTE | 2019-06-21 17:53 | NUR ---
2 UNITS FOR BS 170.
--- NOTE | 2019-06-21 19:20 | NUR ---
PERSONAL WYATT CHAPARRO OUTSIDE AT THIS TIME. Addendum: 06/21/19 at 1999 by Delmy Malhotra RN PLEASE DISREGARD ABOVE NOTE, WRONG PT
--- NOTE | 2019-06-21 19:20 | NUR ---
REPORT GIVEN TO ADULT PROBATION OFFICER NURSE, PT IN STABLE CONDITION.
--- NOTE | 2019-06-21 19:21 | NUR ---
RECEIVED BEDSIDE REPORT FROM DAY SHIFT NURSE. PT EATING AT THIS TIME. DENIES PAIN OR SOB. ON ROOM AIR. SKIN INTACT. IV TO RIGHT FA #22G, DRESSING CLEAN, DRY AND INTACT. DISCUSSED PLAN OF CARE, PT VERBALIZED UNDERSTANDING. CALL LIGHT WITHIN REACH.
[2019-06-21 20:00] VITALS: BP 131/68
[2019-06-21] MEDS: ATORVASTATIN 20 MG TAB PO SCH (20:40)
[2019-06-21] MEDS: INSULIN LANTUS 100 UNITS/ML 10 ML VIAL SUBQ SCH (20:44)
--- NOTE | 2019-06-21 21:18 | NUR ---
PT HAD BMX1, FORMED. SENT STOOL TO LAB. PER DR. NAVA OK TO CANCEL ORDER FOR C.DIFF AND LEUKOCYTES STOOL.
[2019-06-22] VITALS: BP 129/66
--- NOTE | 2019-06-22 00:05 | NUR ---
PT SITTING ON HER BED, WATCHING TV. DENIES PAIN OR SOB. V/S TAKEN, WNL. ALL NEEDS ATTENDED AT THIS TIME. CALL LIGHT WITHIN REACH.
--- NOTE | 2019-06-22 02:35 | NUR ---
PT SLEEPING BUT EASILY AROUSABLE. RESP EVEN AND UNLABORED. CALL LIGHT WITHIN REACH.
[2019-06-22 04:00] VITALS: BP 119/53
--- NOTE | 2019-06-22 04:45 | NUR ---
PT SLEEPING. NO S/S OF RESP DISTRESS OR PAIN. CALL LIGHT WITHIN REACH.
--- NOTE | 2019-06-22 06:20 | NUR ---
BLOOD SUGAR 124. NO INSULIN COVERAGE. PT RESTING IN BED, DENIES PAIN OR SOB.
[2019-06-22] MEDS: BLOOD GLUCOSE MONITORING 1 DEV DEV FS SCH ×2 (06:22→11:30)
[2019-06-22 06:47] LABS: ANION GAP 14.2 (8-16); CARBON DIOXIDE 24.5 mmol/L (21-32); CREATININE 0.8 mg/dL (0.6-1.3); POTASSIUM 3.7 mmol/L (3.5-5.1)
[2019-06-22 06:57] LABS: MAGNESIUM 1.5 mg/dL (1.8-2.4); PHOSPHORUS 2.3 mg/dL (2.5-4.9)
--- NOTE | 2019-06-22 07:12 | NUR ---
ENDORSED PT TO DAY SHIFT NURSE. PT IN STABLE CONDITION.
[2019-06-22 07:18] LABS: BASOPHILS % (AUTO) 0.2 % (0.0-2.0); EOSINOPHILS # (AUTO) 0.1 K/uL (0-0.4); EOSINOPHILS % (AUTO) 1.5 % (0.0-4.0); HEMATOCRIT 33.3 % (36-48); HEMOGLOBIN 10.9 g/dL (12.0-16.0); LYMPHOCYTES # (AUTO) 1.7 K/uL (2.5-16.5); LYMPHOCYTES % (AUTO) 26.1 % (20.5-51.1); MEAN CORPUSCULAR HEMOGLOBIN 30 pg (27-31); MEAN CORPUSCULAR HGB CONC 33 g/dL (33-37); MEAN CORPUSCULAR VOLUME 91.1 fL (80-94); MONOCYTES # (AUTO) 0.6 K/uL (0.8-1.0); MONOCYTES % (AUTO) 9.9 % (1.7-9.3); NEUTROPHILS # (AUTO) 4.1 K/uL (1.8-7.7); NEUTROPHILS % (AUTO) 62.3 % (42.2-75.2); PLATELET COUNT (AUTO) 210 K/uL (140-450); RED BLOOD CELL COUNT(AUTO) 3.66 MIL/uL (4.20-5.40); WHITE BLOOD COUNT (AUTO) 6.6 K/uL (4.8-10.8)
--- NOTE | 2019-06-22 07:25 | NUR ---
REPORT RECEIVED FROM EXCAVATING CONTRACTOR NURSE, PT SLEEPING, AROUSES EASILY, RESP EVEN UNLABORED, SKIN WARM DRY COLOR WNL, DENIES ANY PAIN OR DISCOMFORT, POC REVIEWED, ALL SAFETY MEASURES IN PLACE, CALL SHERWOOD WITHIN REACH, NO IMMEDIATE NEEDS AT THIS TIME, WILL CONTINUE TO MONITOR.
[2019-06-22 08:14] VITALS: BP 122/58
--- NOTE | 2019-06-22 08:39 | NUR ---
PATIENT HAS BEEN SCREENED AND CATEGORIZED MODERATE NUTRITION RISK. PATIENT WILL BE SEEN WITHIN 3-5 DAYS OF ADMISSION. 06/24/[address]
[2019-06-22] MEDS ORDERED: MAG SULF 2000 MG/WATER PREMIX 50 ML IV SCH (09:00)
[2019-06-22] MEDS: METOPROLOL 25 MG TAB PO SCH (09:00)
[2019-06-22] MEDS ORDERED: POTASSIUM PHOSPHATE 15 MM in NACL 0.9% 250 ML IV SCH (10:00)
[2019-06-22] MEDS: LACTOBACILLUS RHAMNOSUS GG 1 EACH CAP PO SCH (10:14)
[2019-06-22] MEDS: ASPIRIN 81 MG TAB.CHEW PO SCH (10:15)
[2019-06-22] MEDS: MULTIVITAMIN/MINERALS 1 TAB PO SCH (10:18)
[2019-06-22] MEDS: MYCOPHENOLATE 250 MG CAP PO SCH (10:19)
[2019-06-22] MEDS: TACROLIMUS 0.5 MG CAP PO SCH (10:20)
[2019-06-22] MEDS: PANTOPRAZOLE 40 MG INJ VIAL IVP SCH (10:21)
[2019-06-22] MEDS: amLODIPine 5 MG TAB PO SCH (10:27)
--- NOTE | 2019-06-22 10:30 | NUR ---
DR BRAGA AT BEDSIDE,
[2019-06-22] MEDS: predniSONE 5 MG TAB PO SCH (10:34)
--- NOTE | 2019-06-22 11:00 | NUR ---
DISCHARGE ORDER RECEIVED, AWAITING MAGNESIUM INFUSION TO COMPLETE, OKAY TO HOLD PHOSPHATE PER DR LUGO. WILL DISCHARGE WHEN MAGNESIUM FINISH.
[2019-06-22 12:00] VITALS: BP 128/58
--- NOTE | 2019-06-22 12:00 | NUR ---
PT RECEIVED 2 UNITS OF INSULIN FOR 177. PT SITTING UP, EATING LUNCH.
[2019-06-22] MEDS ORDERED: CEPH250C16 PO (12:40)
[2019-06-22] MEDS ORDERED: LACT-81 PO (12:40)
[2019-06-22] MEDS ORDERED: ASCO1CAP75 PO (12:41)
[2019-06-22] MEDS: INSULIN LISPRO SLIDING SCALE 100 UNITS/ML VIAL SUBQ PRN (12:44)
--- NOTE | 2019-06-22 14:30 | NUR ---
DISCHARGED INSTRUCTIONS GIVEN AND EXPLAINED TO PT. RX SEND TO [facility] IN [place], PT VERBALIZED FULL UNDERSTANDING. IV DC'D, CATH TIP INTACT, BLEEDING CONTROLLED, PT TOLERATED WELL. NAME BAND REMOVED, TELE BOX REMOVED, PT UP OUT OF BED WITHOUT ASSIST, AMBULATES WITH STEADY GAIT. CHANGING AND WAITING FOR RIDE HOME.
--- NOTE | 2019-06-22 15:00 | NUR ---
PT ESCORTED TO FRONT LOBBY IN WHEELCHAIR, DC'D HOME WITH .
[2019-06-22 15:58] LABS: ANION GAP 15.1 (8-16); CARBON DIOXIDE 22.7 mmol/L (21-32); POTASSIUM 3.8 mmol/L (3.5-5.1)
== END 2019-06-22 15:00 | disposition home or self-care (01) | DRG 872 ==
LOC: MED 08:11 → MIC 10:54 → MTU 18:39
PROVIDERS: ADMIT Family Medicine; ATTEND Family Medicine
DX: A41.9 Sepsis, unspecified organism (principal); Z94.0 Kidney transplant status; N12 Tubulo-interstitial nephritis, not specified as acute or chronic; I10 Essential (primary) hypertension; K21.9 Gastro-esophageal reflux disease without esophagitis; E11.65 Type 2 diabetes mellitus with hyperglycemia; E78.5 Hyperlipidemia, unspecified; K57.90 Diverticulosis of intestine, part unspecified, without perforation or abscess without bleeding; E83.42 Hypomagnesemia; E83.39 Other disorders of phosphorus metabolism; K44.9 Diaphragmatic hernia without obstruction or gangrene; N28.1 Cyst of kidney, acquired; A08.4 Viral intestinal infection, unspecified; Z79.82 Long term (current) use of aspirin; Z79.899 Other long term (current) drug therapy; Z90.710 Acquired absence of both cervix and uterus; Z90.49 Acquired absence of other specified parts of digestive tract; Z83.3 Family history of diabetes mellitus; Z82.49 Family history of ischemic heart disease and other diseases of the circulatory system
CPT/HCPCS: 36415; 71045; 80048; 80053; 81001; 82948; 83036; 83605; 83690; 83735; 84100; 84443; 84484; 85025; 85610; 85730; 87040; 87045; 87081; 87086; 93005; 96365; 96375; 99285; C9113; J0696; J1815; J2405; J3475; J7030; J7060; J7507; J7512; J7517; Q0092

== ENCOUNTER 2020-03-02 01:45 | Inpatient (IN) | payer OTHER, BC ==
[~2020-03-02] VITALS: Ht 157.5 cm; Wt 68.0 kg
[~2020-03-02 01:45] MED LIST changes: +ASCO1CAP75 PO; +CEPH250C16 PO; +METO25TA14 PO; -PROG1 PO; +TACR1CAP17 PO
[2020-03-02 02:00] VITALS: BP 162/68
--- NOTE | 2020-03-02 03:18 | NUR ---
PT AMBULATED TO ER BED 09
[2020-03-02] MEDS ORDERED: ONDANSETRON 4 MG ODT PO ONE (04:05)
[2020-03-02] MEDS ORDERED: NACL 0.9% 1,000 ML IV ONE (04:05)
--- NOTE | 2020-03-02 04:15 | NUR ---
59 Y/O FEMALE PRESENTED TO ED C/O C/O CHILLS, VOMITTING X 1 DAY. PT STATES SHE TOOK TYLENOL AT HOME APPROX AT 2000 , W/ RELIEF. PT STATES IT WORE OFF IN THE MIDDLE OF THE NIGHT AND SHE STARTED HAVING BODY ACHES AND CHILLS. PT DENIES BEING AROUND ANYONE SICK. PT BREATHING EVEN AND UNLABORED, A/O X4. RR EVEN AND UNLABORED. PT RESTING IN BED , LOCKED AND IN LOWEST POSITION ,HOB ELEVATED , SIDE RAIL X1. PT CONNECTED TO PULSE OX , SAO2 98% , VSS. HX- RT KIDNEY TRANSPLANT 2014 HTN, DIABETES NKA
--- NOTE | 2020-03-02 04:43 | NUR ---
BLOOD LABS COLLECTED AND WALKED TO LAB.
[2020-03-02 05:43] LABS: HEMATOCRIT 38.5 % (36-48); HEMOGLOBIN 12.5 g/dL (12.0-16.0); MEAN CORPUSCULAR HEMOGLOBIN 30 pg (27-31); MEAN CORPUSCULAR HGB CONC 33 g/dL (33-37); MEAN CORPUSCULAR VOLUME 90.8 fL (80-94); PLATELET COUNT (AUTO) 237 K/uL (140-450); RED BLOOD CELL COUNT(AUTO) 4.24 MIL/uL (4.20-5.40); RED CELL DISTRIBUTION WIDTH 14.1 % (11.6-13.7); WHITE BLOOD COUNT (AUTO) 19.4 K/uL (4.8-10.8)
[2020-03-02 05:56] LABS: ANION GAP 17.2 (8-16); CARBON DIOXIDE 20.4 mmol/L (21-32); POTASSIUM 3.6 mmol/L (3.5-5.1); TOTAL BILIRUBIN 0.7 mg/dL (0.0-1.0)
--- NOTE | 2020-03-02 06:02 | NUR ---
PT AMBULATED TO RESTROOM W/ STEADY GAIT.
--- NOTE | 2020-03-02 06:08 | NUR ---
URINE SAMPLE COLLECTED AND WALKED TO LAB BY ARIN SANFORD
--- NOTE | 2020-03-02 06:30 | NUR ---
PT RESTING IN BED, LOCKED AND IN LOWEST POSITION, HOB ELEVATED ,SIDE RAIL X1. RR EVEN AND UNLABORED, VSS.
[2020-03-02 06:41] LABS: LYMPHOCYTES % (MANUAL) 4 % (20-46); MONOCYTES % (MANUAL) 4 % (5-12)
--- NOTE | 2020-03-02 07:27 | NUR ---
REPORT GIVEN TO ARIN INFANET FOR CONTINUATION OF CARE.
--- NOTE | 2020-03-02 07:30 | NUR ---
received report from ARIN Gonzalez for continuation of care
[2020-03-02] MEDS ORDERED: ACETAMINOPHEN 325 MG TAB PO ONE (08:10)
[2020-03-02 08:24] LABS: APPEARANCE,URINE HAZY (CLEAR); BILIRUBIN,URINE NEGATIVE (NEGATIVE); BLOOD, URINE TRACE-I (NEGATIVE); COLOR,URINE DARK YELLOW (YELLOW); LEUKOCYTE ESTERASE ,URINE TRACE (NEGATIVE); NITRITE, URINE NEGATIVE (NEGATIVE); UGLUCOSE NEGATIVE (NEGATIVE)
[2020-03-02 08:42] LABS: RBC,URINE 0-5 /HPF (0-5); WBC,URINE 16-25 (MOD) /HPF (0-5)
--- NOTE | 2020-03-02 09:00 | NUR ---
offered pt food/water and she declined. pt states she is comfortable at this time, no new needs
[2020-03-02] MEDS ORDERED: ACETAMINOPHEN EXTRA STRENGTH 500 MG TAB PO STA (09:30)
--- NOTE | 2020-03-02 09:30 | NUR ---
placed pt on bedside cardiac specialist, dr. harris at bedside eval pt
[2020-03-02] MEDS ORDERED: cefTRIAXone 1,000 MG VIAL ONE (09:58)
[2020-03-02] MEDS ORDERED: ACETAMINOPHEN EXTRA STRENGTH 500 MG TAB ONE (09:59)
[2020-03-02] MEDS ORDERED: ONDANSETRON 4 MG/2 ML VIAL IVP PRN (10:20)
[2020-03-02] MEDS ORDERED: DEXTROSE 50% 50 ML SYR IVP PRN (10:20)
[2020-03-02] MEDS ORDERED: ACETAMINOPHEN 325 MG TAB PO PRN (10:20)
[2020-03-02] MEDS ORDERED: METO25TA14 PO (10:30)
[2020-03-02] MEDS ORDERED: NACL 0.9% 1,000 ML IV SCH (10:30)
[2020-03-02] MEDS ORDERED: CLON0.1T42 PO (10:31)
[2020-03-02] MEDS ORDERED: TACR1CAP17 PO (10:31)
[2020-03-02] MEDS ORDERED: CLONIDINE HYDROCHLORIDE 0.1 MG TAB PO PRN (10:35)
--- NOTE | 2020-03-02 10:45 | NUR ---
COVID & FLU SWAB COLLECTED AND WALKED TO LAB
[2020-03-02] MEDS: NACL 0.9% 1,000 ML IV SCH ×2 (10:46→18:21)
--- NOTE | 2020-03-02 11:01 | NUR ---
PT RESTING IN BED, NO NEW NEEDS AT THIS TIME
[2020-03-02] MEDS: BLOOD GLUCOSE MONITORING 1 DEV DEV FS SCH ×3 (11:30→20:39)
[2020-03-02 12:16] LABS: BARBITURATE, URINE NEGATIVE ng/ml (NEG <=200); BENZODIAZEPINE, URINE NEGATIVE ng/mL (NEG <=200); CANNABINOID, URINE NEGATIVE ng/mL (NEG <=50); COCAINE, URINE NEGATIVE ng/mL (NEG <=300); OPIATE, URINE NEGATIVE ng/mL (NEG <=2000); PHENCYCLIDINE SCREEN,URINE NEGATIVE ng/mL (NEG <=25)
--- NOTE | 2020-03-02 12:25 | NUR ---
pt reports generalized body aches 5/10. Will administer PRN norco pill
[2020-03-02] MEDS: HYDROcodone/APAP 7.5/325 MG 1 TAB PO PRN ×2 (12:46→18:10)
--- NOTE | 2020-03-02 14:05 | NUR ---
PT AWAKE AND TALKING ON PHONE. NO NEW NEEDS AT THIS TIME
[2020-03-02 14:19] LABS: PROTHROMBIN TIME 10.7 secs (10.8-13.4)
[2020-03-02 14:28] LABS: FREE T4 (FREE THYROXINE) 0.91 ng/dL (0.76-1.46); PHOSPHORUS 2.3 mg/dL (2.5-4.9); THYROID STIMULATING HORMONE 0.33 uIU/mL (0.34-3.74)
[2020-03-02] MEDS: MAG SULF 2000 MG/WATER PREMIX 100 ML IV SCH ×2 (16:00→19:04)
--- NOTE | 2020-03-02 17:07 | NUR ---
PT RESTING IN BED, NO NEW NEEDS AT THIS TIME
--- NOTE | 2020-03-02 17:50 | NUR ---
RECEIVED REPORT FROM EMERGENCY ROOM NURSE FOR CONTINUITY OF CARE. PATIENT IN STABLE CONDITION. IV INTACT AND PATENT. RESPIRATIONS EVEN AND UNLABORED. BED IN LOW POSITION. PATIENT ORIENTED TO ROOM. CALL LIGHT WITHIN REACH. WILL CONTINUE TO MONITOR.
--- NOTE | 2020-03-02 18:11 | NUR ---
Patient will be admitted to care of DR. DAO. Admited to TELEMETRY. Will go to room 106B. Belongings list completed. Report to ARIN HILL.
--- NOTE | 2020-03-02 19:10 | NUR ---
GAVE REPORT TO PULP BLEACHER NURSE FOR CONTINUITY OF CARE. PATIENT IN STABLE CONDITION.
--- NOTE | 2020-03-02 19:15 | NUR ---
RECEIVED REPORT FROM LIZ HINKLE PT GREENLANDIC SPEAKER AAOX4 AMBULATORY, IV ON RT HAND GAUGE # 22 INFUSING WELL MAGNESIUM NOT SOB NOTED NOT VOMITING PT HAS ON LEFT UA AN OLD THAT IS NOT USING AV SHUNT FOR HD .PT HAS A RT KIDNEY TRANSPLANT (2014) PT IS O;RIEBNTED TO THE FLOOR CALL LIGHT WITHIN REACH.
[2020-03-02] MEDS ORDERED: METOPROLOL 25 MG TAB ONE (19:56)
[2020-03-02] MEDS ORDERED: ATORVASTATIN 20 MG TAB ONE (19:57)
[2020-03-02] MEDS ORDERED: DOCUSATE SODIUM 100 MG GELCAP PO ONE (19:58)
[2020-03-02] MEDS ORDERED: MYCOPHENOLATE 250 MG CAP PO ONE (19:59)
[2020-03-02 20:00] VITALS: BP 135/55
[2020-03-02] MEDS: SODIUM PHOS / POTASSIUM PHOS 1 PKT PDR PO SCH (20:00)
[2020-03-02] MEDS: ATORVASTATIN 20 MG TAB PO SCH (20:08)
[2020-03-02] MEDS: DOCUSATE SODIUM 100 MG GELCAP PO SCH (20:08)
[2020-03-02] MEDS: METOPROLOL 25 MG TAB PO SCH (20:09)
[2020-03-02] MEDS: MYCOPHENOLATE 250 MG CAP PO SCH (20:11)
[2020-03-02] MEDS ORDERED: HYDROcodone/APAP 7.5/325 MG 1 TAB ONE (20:20)
--- NOTE | 2020-03-02 21:00 | NUR ---
A SECOND BAG OF 2 GRAMS OF MG IS GIVING
[2020-03-02] MEDS ORDERED: TACROLIMUS 0.5 MG CAP ONE ×2 (21:10→21:12)
[2020-03-02] MEDS: TACROLIMUS 0.5 MG CAP PO SCH (21:13)
[2020-03-02] MEDS: INSULIN LISPRO SLIDING SCALE 100 UNITS/ML VIAL SUBQ PRN (21:14)
--- NOTE | 2020-03-02 21:20 | NUR ---
BLOOD SUGAR TEST 225 COVERAGE WITH 4 UNITS SUB Q HUMALOG PROTOCOL, PT ON SR ONTELMETRY
[2020-03-03] VITALS: BP 138/50
--- NOTE | 2020-03-03 00:14 | NUR ---
PT SLEEPING WELL , ON TELE SR NOT DISTRESS NOTED, IV ON RT HAND INFUSING WELL
--- NOTE | 2020-03-03 03:53 | NUR ---
PT IS ASSISTED TO THE RESTROOM, ON TELE SR NOT DISTRESS NOTED REMAIN STABLE A T THIS TIME
[2020-03-03 04:00] VITALS: BP 147/65
--- NOTE | 2020-03-03 04:00 | NUR ---
LINEN CHANGED PT SEEM COMFORTABLE COOPERATIVE ON TELE SR
[2020-03-03] MEDS: NACL 0.9% 1,000 ML IV SCH ×3 (06:00→19:50)
[2020-03-03] MEDS: BLOOD GLUCOSE MONITORING 1 DEV DEV FS SCH ×4 (06:04→21:28)
[2020-03-03] MEDS: INSULIN LISPRO SLIDING SCALE 100 UNITS/ML VIAL SUBQ PRN ×4 (06:05→21:35)
[2020-03-03 06:31] LABS: BASOPHILS % (AUTO) 0.2 % (0.0-2.0); EOSINOPHILS % (AUTO) 0.4 % (0.0-4.0); HEMATOCRIT 33.4 % (36-48); LYMPHOCYTES % (AUTO) 9.2 % (20.5-51.1); MEAN CORPUSCULAR HEMOGLOBIN 30 pg (27-31); MEAN CORPUSCULAR HGB CONC 33 g/dL (33-37); MEAN CORPUSCULAR VOLUME 91.1 fL (80-94); MONOCYTES # (AUTO) 1.1 K/uL (0.8-1.0); MONOCYTES % (AUTO) 9.3 % (1.7-9.3); NEUTROPHILS # (AUTO) 9.3 K/uL (1.8-7.7); NEUTROPHILS % (AUTO) 80.9 % (42.2-75.2); PLATELET COUNT (AUTO) 179 K/uL (140-450); RED BLOOD CELL COUNT(AUTO) 3.67 MIL/uL (4.20-5.40); RED CELL DISTRIBUTION WIDTH 13.7 % (11.6-13.7); WHITE BLOOD COUNT (AUTO) 11.4 K/uL (4.8-10.8)
[2020-03-03 06:49] LABS: CARBON DIOXIDE 22.6 mmol/L (21-32); CREATININE 1.2 mg/dL (0.6-1.3); POTASSIUM 3.6 mmol/L (3.5-5.1)
--- NOTE | 2020-03-03 07:01 | NUR ---
BLOOD SUGAR TEST 186 COVERAGE WITH 2 UNITS HUMALOG SUBQ , PT WILL BE ENDORSED TO DAY SHIFT NURSE FOR CONTINUE OF CARE
[2020-03-03 08:00] VITALS: BP 128/62
--- NOTE | 2020-03-03 08:00 | NUR ---
RECEIVED REPORT FROM ARIN MENDOZA. PATIENT ALERT AWAKE ORIENTED X4, NOT IN ANY DISTRESS NOTED. INITIAL ASSESSMENT INITIATED. ON MONITOR SHOWS SR. WITH IVF ON GOING AND INFUSING WELL. RIGHT HAND IV INTACT. NEEDS ATTENDED. CALL LIGHT WITHIN REACH. WILL CONTINUE TO MONITOR.
[2020-03-03 08:08] LABS: PHOSPHORUS 1.8 mg/dL (2.5-4.9)
[2020-03-03 09:37] LABS: CHOL/HDL RATIO 2.3 (1-4.5)
[2020-03-03] MEDS: METOPROLOL 25 MG TAB PO SCH ×2 (09:40→20:37)
[2020-03-03] MEDS: ECOTRIN 81 MG TABEC PO SCH (09:40)
[2020-03-03] MEDS: SODIUM PHOS / POTASSIUM PHOS 1 PKT PDR PO SCH ×3 (09:41→17:21)
[2020-03-03] MEDS: MYCOPHENOLATE 250 MG CAP PO SCH ×2 (09:41→20:34)
[2020-03-03] MEDS: DOCUSATE SODIUM 100 MG GELCAP PO SCH ×2 (09:42→20:36)
[2020-03-03] MEDS: predniSONE 20 MG TAB PO SCH (09:42)
[2020-03-03] MEDS: TACROLIMUS 0.5 MG CAP PO SCH ×2 (09:43→22:22)
[2020-03-03] MEDS: amLODIPine 5 MG TAB PO SCH (09:47)
--- NOTE | 2020-03-03 10:00 | NUR ---
PATIENT RESTING IN BED, IB ABX INFUSED, NO REACTION NOTED. WILL CONTINUE TO MONITOR.
--- NOTE | 2020-03-03 10:17 | NUR ---
GLOBAL UPSTREAM MARKETING MANAGER NOTE: DARIEL CONTACTED PATIENT'S SIGNIFICANT OTHER RUBY BRUNO [phone]. DARIEL LEFT VM AND WILL FOLLOW UP. Addendum: 03/04/20 at 1022 by Wilmer CONCEPCION DARIEL USED CEMENT DESPATCH OPERATOR BRET [id number] TO LEAVE VM FOR PATIENT'S RUBY BRUNO [phone]. DARIEL WILL FOLLOW UP. Addendum: 03/05/20 at 1048 by Wilmer CONCEPCION DARIEL LEFT ADDITIONAL MESSAGE TO PATIENT'S SIGNIFICANT OTHER, RUBY BRUNO [phone]. DARIEL LEFT VM.
--- NOTE | 2020-03-03 10:32 | NUR ---
PATIENT HAS BEEN SCREENED AND CATEGORIZED HIGH NUTRITION RISK. PATIENT WILL BE SEEN WITHIN 1-2 DAYS OF ADMISSION. 03/02/20 03/03/[address]
[2020-03-03 12:00] VITALS: BP 126/56
--- NOTE | 2020-03-03 15:21 | NUR ---
DISCHARGE PLANNING: THIS IS A 59 Y/O FEMALE FROM HOME, WHO CAME IN DUE TO VOMITING AND BODY ACHES. PAST MEDICAL HISTORY INCLUDE HYPERTENSIVE NEPHROSCLEROSIS, RENAL FAILURE, DM, HTN, KIDNEY TRANSPLANT 07/25/2015 AT [facility] [place]. INITIAL DIAGNOSIS OF PYELONEPHRITIS. CURRENT LABS INCLUDE WBC 11.4, H/H 11.0/33.4, NA/K 138/3.6, BUN/CREA 13/1.2. COVID PENDING. MRSA AND URINE CS PENDING. BLOOD CS NO GROWTH AFTER [address] CONSULT IN PLACE AND SEEN. DC PLAN BACK TO HOME ONCE STABLE.
--- NOTE | 2020-03-03 16:04 | NUR ---
SEEN BY DR. PLUNKETT AND DISCUSSED THE PLAN OF CARE. WILL CONTINUE TO MONITOR.
[2020-03-03 16:30] VITALS: BP 121/63
--- NOTE | 2020-03-03 17:23 | NUR ---
03/03/2020 RD INITIAL ASSESSMENT COMPLETED PLEASE REFER TO NUTRITION ASSESSMENT UNDER CARE ACTIVITY FOR ESTIMATED NUTRITIONAL NEEDS. CONTINUE CURRENT DIET TOLERATED RD TO FOLLOW-UP IN 2-3 DAYS PATIENT IS HIGH RISK. JL HUERTAS RD
--- NOTE | 2020-03-03 18:52 | NUR ---
NO C/O PAIN, NO SOB. WILL ENDORSE TO THE NEXT SHIFT.
--- NOTE | 2020-03-03 19:10 | NUR ---
RECEIVED PT FROM SHARRON HINKLE PT IS AAOX4 AMBULATORY, IV ON RT HAND INFUSING WELL ON TELEMETRY SR, DENIES ANY PAIN OR NAUSEAS NOR SOB, INITIAL ASSESSMENT DONE
[2020-03-03 20:00] VITALS: BP 149/77
[2020-03-03] MEDS: ATORVASTATIN 20 MG TAB PO SCH (20:37)
[2020-03-03] MEDS ORDERED: TACROLIMUS 0.5 MG CAP ONE (21:14)
--- NOTE | 2020-03-03 21:30 | NUR ---
BLOOD SUGAR TESST 264 COVERAGE WITH; 6 SUBQ UNITS HUMALO;G FOLLOW PROTOCOL
[2020-03-04] VITALS: BP 134/84
--- NOTE | 2020-03-04 01:00 | NUR ---
PT VO;IDING WELL DENIES ANY PAIN ON TELMETRY SR
[2020-03-04] MEDS: HYDROcodone/APAP 7.5/325 MG 1 TAB PO PRN (02:58)
[2020-03-04 04:00] VITALS: BP 124/67
--- NOTE | 2020-03-04 04:00 | NUR ---
SPONGE BATH GIVEN LINEN CHANGED PT COOPERATIVE IV ON RT HAND INFUSING WELL NOT DISTRESS NOTED, ON TELE SB AT THIS TIME
[2020-03-04] MEDS: BLOOD GLUCOSE MONITORING 1 DEV DEV FS SCH ×4 (05:59→20:58)
[2020-03-04] MEDS: INSULIN LISPRO SLIDING SCALE 100 UNITS/ML VIAL SUBQ PRN ×4 (06:00→20:58)
[2020-03-04] MEDS: NACL 0.9% 1,000 ML IV SCH ×3 (06:00→20:50)
[2020-03-04 06:23] LABS: BASOPHILS % (AUTO) 0.3 % (0.0-2.0); EOSINOPHILS # (AUTO) 0.1 K/uL (0-0.4); EOSINOPHILS % (AUTO) 0.6 % (0.0-4.0); HEMATOCRIT 33.9 % (36-48); HEMOGLOBIN 11.1 g/dL (12.0-16.0); LYMPHOCYTES # (AUTO) 1.7 K/uL (2.5-16.5); LYMPHOCYTES % (AUTO) 17.9 % (20.5-51.1); MEAN CORPUSCULAR HEMOGLOBIN 30 pg (27-31); MEAN CORPUSCULAR HGB CONC 33 g/dL (33-37); MEAN CORPUSCULAR VOLUME 90.6 fL (80-94); MONOCYTES % (AUTO) 10.5 % (1.7-9.3); NEUTROPHILS # (AUTO) 6.8 K/uL (1.8-7.7); NEUTROPHILS % (AUTO) 70.7 % (42.2-75.2); PLATELET COUNT (AUTO) 217 K/uL (140-450); RED BLOOD CELL COUNT(AUTO) 3.74 MIL/uL (4.20-5.40); RED CELL DISTRIBUTION WIDTH 13.7 % (11.6-13.7); WHITE BLOOD COUNT (AUTO) 9.6 K/uL (4.8-10.8)
--- NOTE | 2020-03-04 06:55 | NUR ---
BLOOD SUGAR TEST 209 COVERAGE WITH 4 UNITS SUBQ HUMALOG FOLOW PROTOCOL, PT WILL BE ENDORSED TO DAY SHIFT NURSE FOR CONTINUE OF CARE
[2020-03-04 06:58] LABS: ANION GAP 16.3 (8-16); CARBON DIOXIDE 21.6 mmol/L (21-32); CREATININE 1.1 mg/dL (0.6-1.3); POTASSIUM 3.9 mmol/L (3.5-5.1)
--- NOTE | 2020-03-04 07:30 | NUR ---
Received report from pm nurse Tonja. Pt resting in bed, respirations even & nonlabored in room air, no signs of distress. Right hand IV 22G intact with ongoing NS @ 120ml/h. Call light within reach.
[2020-03-04 08:00] VITALS: BP 126/76
[2020-03-04] MEDS: MYCOPHENOLATE 250 MG CAP PO SCH ×2 (08:59→20:50)
[2020-03-04] MEDS: TACROLIMUS 0.5 MG CAP PO SCH ×2 (08:59→20:54)
[2020-03-04] MEDS: predniSONE 20 MG TAB PO SCH (08:59)
[2020-03-04] MEDS: amLODIPine 5 MG TAB PO SCH (09:00)
[2020-03-04] MEDS: METOPROLOL 25 MG TAB PO SCH ×2 (09:00→20:50)
[2020-03-04] MEDS: ECOTRIN 81 MG TABEC PO SCH (09:00)
[2020-03-04] MEDS: DOCUSATE SODIUM 100 MG GELCAP PO SCH ×2 (09:00→20:50)
[2020-03-04] MEDS: SODIUM PHOS / POTASSIUM PHOS 1 PKT PDR PO SCH ×3 (09:00→17:41)
--- NOTE | 2020-03-04 13:30 | NUR ---
Pt resting in bed, watching TV, no SOB, no c/o pain. Right wrist IV intact with ongoing NS @ 120ml/h.
[2020-03-04 16:00] VITALS: BP 158/66
--- NOTE | 2020-03-04 19:12 | NUR ---
Report given to pm nurse Clark.
--- NOTE | 2020-03-04 19:15 | NUR ---
RECEIVED PT ON BED, AAOX4, ABLE TO MAKE NEEDS KNOWN, NO SIGNS OF RESP DISTRESS, DENIES ANY PAIN, IVF INFUSING WELL, MAINTAIN ON DROPLET PRECAUTION FOR PUI COVID, AWAITING RESULT, SAFETY MEASURES IN PLACE, CALL LIGHT WITHIN REACH.
[2020-03-04] MEDS: ATORVASTATIN 20 MG TAB PO SCH (20:49)
--- NOTE | 2020-03-04 20:50 | NUR ---
BLOOD SUGAR CHECKED WITH 298 RESULT, RISS COVERAGE ADMINISTERED, DUE MEDS GIVEN, ALL NEEDS ATTENDED.
[2020-03-05] VITALS: BP 123/63
--- NOTE | 2020-03-05 01:20 | NUR ---
PT SEEN AMBULATING TO BR WITH STEADY GAIT, NO SOB NOTED, DENIES ANY PAIN, MONITORED CLOSELY.
[2020-03-05] MEDS: NACL 0.9% 1,000 ML IV SCH ×2 (04:06→13:30)
--- NOTE | 2020-03-05 06:20 | NUR ---
PT SLEEPING, EASILY AROUSABLE, DENIES ANY PAIN, BLOOD SUGAR CHECKED WITH 214 RESULT, WILL COVER WITH SLIDING SCALE 4 UNITS, IVF INFUSING WELL, MONITORED CLOSELY.
[2020-03-05] MEDS: BLOOD GLUCOSE MONITORING 1 DEV DEV FS SCH ×3 (06:38→17:00)
[2020-03-05] MEDS: INSULIN LISPRO SLIDING SCALE 100 UNITS/ML VIAL SUBQ PRN ×3 (06:46→17:26)
--- NOTE | 2020-03-05 07:17 | NUR ---
PT AWAKE, NO SIGNS OF DISTRESS, REPORT GIVEN TO ARIN MCDERMOTT FOR CONTINUITY OF CARE.
[2020-03-05 07:23] LABS: ANION GAP 15.6 (8-16); CARBON DIOXIDE 22.5 mmol/L (21-32); CREATININE 1.1 mg/dL (0.6-1.3); POTASSIUM 4.1 mmol/L (3.5-5.1)
[2020-03-05 07:28] LABS: MAGNESIUM 1.2 mg/dL (1.8-2.4); PHOSPHORUS 2.2 mg/dL (2.5-4.9)
[2020-03-05 07:56] VITALS: BP 142/71
--- NOTE | 2020-03-05 08:12 | NUR ---
RECEIVED REPORT FROM ARIN BROWN. PATIENT ALERT AWAKE ORIENTED X4, NOT IN ANY DISTRESS NOTED. DENIES PAIN. INITIAL ASSESSMENT INITIATED. WITH IVF ON GOING AND INFUSING WELL. DISCUSSED PLAN OF CARE AND VERBALIZED UNDERSTANDING. CALL LIGHT WITHIN REACH. WILL CONTINUE TO MONITOR.
[2020-03-05] MEDS: MYCOPHENOLATE 250 MG CAP PO SCH (09:05)
[2020-03-05] MEDS: TACROLIMUS 0.5 MG CAP PO SCH (09:06)
[2020-03-05] MEDS: ECOTRIN 81 MG TABEC PO SCH (09:06)
[2020-03-05] MEDS: DOCUSATE SODIUM 100 MG GELCAP PO SCH (09:07)
[2020-03-05] MEDS: METOPROLOL 25 MG TAB PO SCH (09:07)
[2020-03-05] MEDS: SODIUM PHOS / POTASSIUM PHOS 1 PKT PDR PO SCH ×3 (09:07→17:26)
[2020-03-05] MEDS: predniSONE 20 MG TAB PO SCH (09:07)
[2020-03-05] MEDS: amLODIPine 5 MG TAB PO SCH (09:13)
[2020-03-05] MEDS ORDERED: CEPH250C16 PO (09:28)
--- NOTE | 2020-03-05 09:30 | NUR ---
SEEN BY DR. DAO AND EXPLAINED TO THE PATIENT REGARDING DC PLAN TODAY.
[2020-03-05] MEDS ORDERED: MAG SULF 2000 MG/WATER PREMIX 50 ML IV SCH (10:00)
--- NOTE | 2020-03-05 10:55 | NUR ---
MAG RIDER STARTED AND INFUSING WELL.
[2020-03-05 13:58] LABS: BASOPHILS # (AUTO) 0.1 K/uL (0.00-0.22); BASOPHILS % (AUTO) 0.7 % (0.0-2.0); EOSINOPHILS # (AUTO) 0.1 K/uL (0-0.4); EOSINOPHILS % (AUTO) 0.6 % (0.0-4.0); HEMATOCRIT 32.7 % (36-48); HEMOGLOBIN 10.6 g/dL (12.0-16.0); LYMPHOCYTES # (AUTO) 2.2 K/uL (2.5-16.5); LYMPHOCYTES % (AUTO) 24.8 % (20.5-51.1); MEAN CORPUSCULAR HEMOGLOBIN 30 pg (27-31); MEAN CORPUSCULAR HGB CONC 33 g/dL (33-37); MONOCYTES # (AUTO) 0.4 K/uL (0.8-1.0); NEUTROPHILS % (AUTO) 68.9 % (42.2-75.2); PLATELET COUNT (AUTO) 238 K/uL (140-450); RED BLOOD CELL COUNT(AUTO) 3.59 MIL/uL (4.20-5.40); RED CELL DISTRIBUTION WIDTH 13.9 % (11.6-13.7); WHITE BLOOD COUNT (AUTO) 8.7 K/uL (4.8-10.8)
[2020-03-05] MEDS ORDERED: SODIUM PHOSPHATE 15 MMOLE in NACL 0.9% 250 ML IV SCH (14:00)
[2020-03-05 17:01] VITALS: BP 127/62
--- NOTE | 2020-03-05 19:04 | NUR ---
WAITING FOR PHOSPHOTASE TO INFUSE. DISCHARGE PAPERS SIGNED, DC INSTRUCTION GIVEN AND VERBALIZED UNDERSTANDING. WILL ENDORSE TO REJI CHARGE NURSE.
--- NOTE | 2020-03-05 19:10 | NUR ---
RECEIVED PT FROM SHARRON HINKLE PT IS AAOX4 AMBULATORY IV ON RT HAND INFUSING WELL PHOSPHATASE AND PT WILL BE DC HOME TONIGHT
--- NOTE | 2020-03-05 20:30 | NUR ---
PT READY TO GO HOME IV DC AND ALL PAPER WORK FOR DISCHARGE ALREADY SIGNED AND [facility] TAKE PT TO THE LOBBY AND PT WILL PICK HER UP STABLE
== END 2020-03-05 20:35 | disposition home or self-care (01) | DRG 871 ==
LOC: MED 01:45 → EEVIPCON 09:36 → MTU 09:36
PROVIDERS: ADMIT General Practice; ATTEND General Practice
DX: A41.9 Sepsis, unspecified organism (principal); N18.6 End stage renal disease; N12 Tubulo-interstitial nephritis, not specified as acute or chronic; I12.0 Hypertensive chronic kidney disease with stage 5 chronic kidney disease or end stage renal disease; Z94.0 Kidney transplant status; E11.65 Type 2 diabetes mellitus with hyperglycemia; E83.42 Hypomagnesemia; E83.39 Other disorders of phosphorus metabolism; E11.22 Type 2 diabetes mellitus with diabetic chronic kidney disease; K57.90 Diverticulosis of intestine, part unspecified, without perforation or abscess without bleeding; K44.9 Diaphragmatic hernia without obstruction or gangrene; K76.0 Fatty (change of) liver, not elsewhere classified; D89.9 Disorder involving the immune mechanism, unspecified; K43.9 Ventral hernia without obstruction or gangrene; I25.10 Atherosclerotic heart disease of native coronary artery without angina pectoris; Z20.828 Contact with and (suspected) exposure to other viral communicable diseases; Z82.49 Family history of ischemic heart disease and other diseases of the circulatory system; Z83.3 Family history of diabetes mellitus; Z90.710 Acquired absence of both cervix and uterus
CPT/HCPCS: 36415; 71045; 80048; 80053; 80305; 81001; 82150; 82948; 83036; 83605; 83690; 83735; 83880; 84100; 84439; 84443; 84484; 85025; 85610; 85730; 87040; 87081; 87086; 87186; 87804; 96361; 96365; 99285; J0696; J1644; J3475; J7030; J7060; J7507; J7512; J7517; Q0092; Q0162; U0003-CS

== ENCOUNTER 2021-09-03 18:04 | Emergency (ER) | payer OTHER, BC ==
[~2021-09-03] VITALS: Ht 157.5 cm; Wt 83.9 kg
[~2021-09-03 18:04] MED LIST changes: +AMLO-3 PO; -AMLO5TAB PO; -ASCO1CAP75 PO; -CEPH250C16 PO; +CLON0.1T16 PO; -CLON0.1T42 PO; +LEVO750T51 PO; +MULT-140 PO; +MULT-405 PO
[2021-09-03 18:11] VITALS: BP 127/66
[2021-09-03] MEDS ORDERED: ACETAMINOPHEN EXTRA STRENGTH 500 MG TAB PO ONE (18:45)
[2021-09-03] MEDS ORDERED: ACETAMINOPHEN EXTRA STRENGTH 500 MG TAB ONE (18:46)
--- NOTE | 2021-09-03 18:52 | NUR ---
61/F BIB WITH [facility], VOMITING AND BODY ACHES X2 DAYS. DENIES RECENT EXPOSURE TO COVID TO HER KNOWLEDGE, SICK AT HOME WITH SIMILAR SYMPTOMS. STATES SHE HAS BEEN HAVING INTERMITTENT EPISODES OF SOB WHEN SHE EXCESSIVELY COUGHS, DENIES CP. PATIENT HAS TEMP 102.5 ORALLY UPON TRIAGE, DR. ENNIS AWARE OF PATIENT .
[2021-09-03] MEDS ORDERED: NACL 0.9% 1,000 ML IV ONE (21:40)
[2021-09-03 21:47] LABS: ALBUMIN 3.4 g/dL (3.4-5.0); ANION GAP 16.3 (8-16); CARBON DIOXIDE 24.1 mmol/L (21-32); CREATININE 1.3 mg/dL (0.6-1.3); POTASSIUM 3.4 mmol/L (3.5-5.1); TOTAL BILIRUBIN 0.7 mg/dL (0.0-1.0)
[2021-09-03 21:52] LABS: BASOPHILS % (AUTO) 0.3 % (0.0-2.0); EOSINOPHILS % (AUTO) 0.1 % (0.0-4.0); HEMATOCRIT 38.9 % (36-48); HEMOGLOBIN 12.8 g/dL (12.0-16.0); LYMPHOCYTES # (AUTO) 0.8 K/uL (2.5-16.5); LYMPHOCYTES % (AUTO) 5.6 % (20.5-51.1); MEAN CORPUSCULAR HEMOGLOBIN 29 pg (27-31); MEAN CORPUSCULAR HGB CONC 33 g/dL (33-37); MEAN CORPUSCULAR VOLUME 88.5 fL (80-94); MONOCYTES # (AUTO) 1.6 K/uL (0.8-1.0); MONOCYTES % (AUTO) 11.3 % (1.7-9.3); NEUTROPHILS # (AUTO) 11.8 K/uL (1.8-7.7); NEUTROPHILS % (AUTO) 82.7 % (42.2-75.2); PLATELET COUNT (AUTO) 221 K/uL (140-450); RED BLOOD CELL COUNT(AUTO) 4.39 MIL/uL (4.20-5.40); RED CELL DISTRIBUTION WIDTH 15.5 % (11.6-13.7); WHITE BLOOD COUNT (AUTO) 14.2 K/uL (4.8-10.8)
--- NOTE | 2021-09-03 23:45 | NUR ---
SWABS COLLECTED AND GIVEN TO JAYDE.
--- NOTE | 2021-09-04 00:12 | NUR ---
PT REFUSED IV FLUIDS STATED SHE CAN DRINK A PEDIALYTE. UPDATED.
[2021-09-04 00:26] LABS: APPEARANCE,URINE CLEAR (CLEAR); BILIRUBIN,URINE NEGATIVE (NEGATIVE); BLOOD, URINE 3+ (NEGATIVE); COLOR,URINE YELLOW (YELLOW); LEUKOCYTE ESTERASE ,URINE 2+ (NEGATIVE); NITRITE, URINE NEGATIVE (NEGATIVE); PH,URINE 5.5 (5.0-9.0); UGLUCOSE NEGATIVE (NEGATIVE)
[2021-09-04 01:11] LABS: WBC,URINE TOO MANY TO COUNT /HPF (0-5)
[2021-09-04] MEDS ORDERED: CEPH500C16 PO (01:21)
[2021-09-04 02:06] VITALS: BP 131/53
== END 2021-09-04 02:06 | disposition home or self-care (01) ==
LOC: MED 18:04
DX: N39.0 Urinary tract infection, site not specified (principal); Z20.822 Contact with and (suspected) exposure to COVID-19; R11.2 Nausea with vomiting, unspecified; E11.9 Type 2 diabetes mellitus without complications; I10 Essential (primary) hypertension; Z79.899 Other long term (current) drug therapy; Z79.4 Long term (current) use of insulin; Z79.82 Long term (current) use of aspirin; Z85.42 Personal history of malignant neoplasm of other parts of uterus; Z98.890 Other specified postprocedural states
CPT/HCPCS: 36415; 71045; 80053; 81001; 83605; 85025; 87040; 87086; 87426; 87804; 99284; Q0092; 81002